=== PATIENT | male | born 1955 | race Caucasian/White ===

== ENCOUNTER 2023-10-27 10:27 | Emergency (ER) | payer MEDICARE ==
[~2023-10-27] VITALS: Ht 177.8 cm; Wt 65.0 kg
[2023-10-27 10:37] VITALS: O2SAT 98
[2023-10-27 14:43] LABS: CLARITY URINE CLOUDY (CLEAR); COLOR URINE DARK YELLOW (YELLOW); GLUCOSE URINE NEGATIVE (NEGATIVE); KETONES URINE TRACE (NEGATIVE); LEUKOCYTE ESTERASE URINE NEGATIVE (NEGATIVE); NITRITE URINE NEGATIVE (NEGATIVE); OCCULT BLOOD URINE NEGATIVE (NEGATIVE); PROTEIN URINE TRACE (NEGATIVE); SPECIFIC GRAVITY URINE 1.017 (1.005-1.030)
[2023-10-27 14:59] LABS: SQUAMOUS EPITHELIAL CELL URINE NONE SEEN /lpf (RARE/1+)
[2023-10-27 15:00] LABS: BACTERIA URINE 1+; RBC URINE 0-2 /hpf (0-2); WBC URINE 0-2 /hpf (0-2)
[2023-10-27 15:33] VITALS: BP 145/87; PULSE 73; RESP 18; TEMP 98.6
== END 2023-10-27 15:34 | disposition home or self-care (01) ==
LOC: ER 11:42
DX: M54.50 Low back pain, unspecified (principal); R30.0 Dysuria; I10 Essential (primary) hypertension; Z85.9 Personal history of malignant neoplasm, unspecified
CPT/HCPCS: 81003; 99291